=== PATIENT | female | born 1955 | race Caucasian/White ===

== ENCOUNTER → 2024-11-17 | Outpatient (CLI) | payer MEDICARE, SELFPAY | END | disposition home or self-care (01) | LOC: SWHD 12:38 | PROVIDERS: Visit Provider Student in an Organized Health Care Education/Training Program | DX: L89.322 Pressure ulcer of left buttock, stage 2 (principal); L89.312 Pressure ulcer of right buttock, stage 2; E66.01 Morbid (severe) obesity due to excess calories; I10 Essential (primary) hypertension; I82.409 Acute embolism and thrombosis of unspecified deep veins of unspecified lower extremity; E11.69 Type 2 diabetes mellitus with other specified complication; Z79.4 Long term (current) use of insulin | CPT/HCPCS: 17250; 99212; A9270; G0463 ==

== ENCOUNTER → 2025-01-14 | Outpatient (CLI) | payer MEDICARE, SELFPAY | END | disposition home or self-care (01) | LOC: SWHD 10:32 | PROVIDERS: PCP Family Medicine; Referring Provider Family Medicine; Visit Provider Student in an Organized Health Care Education/Training Program | DX: L89.322 Pressure ulcer of left buttock, stage 2 (principal); L89.312 Pressure ulcer of right buttock, stage 2; E66.01 Morbid (severe) obesity due to excess calories; I10 Essential (primary) hypertension; I82.409 Acute embolism and thrombosis of unspecified deep veins of unspecified lower extremity; E11.69 Type 2 diabetes mellitus with other specified complication; Z79.4 Long term (current) use of insulin | CPT/HCPCS: 17250; A9270 ==